=== PATIENT | female | born 1970 | race Caucasian/White ===

== ENCOUNTER → 2016-08-24 | Outpatient (CLI) | payer OTHER ==
--- NOTE | 2016-08-24 12:55 | MM ---
Reason for exam: screening (asymptomatic). Baseline mammogram. Physical Findings: Nurse did not find any significant physical abnormalities on exam. MG Screening Mammo w CAD Bilateral CC and MLO view(s) were taken. The breast tissue is extremely dense which could obscure a lesion on mammography. There is no discrete abnormality. These results were verbally communicated with the patient and result sheet given to the patient on 08/24/16. ASSESSMENT: Negative, BI-RAD 1 RECOMMENDATION: Routine screening mammogram of both breasts in 1 year.
== END | disposition home or self-care (01) ==
LOC: RADMAMWWP 08:27
PROVIDERS: ATTEND Family Medicine
DX: Z12.31 Encounter for screening mammogram for malignant neoplasm of breast (principal)

== ENCOUNTER → 2016-10-09 | Outpatient (CLI) | payer OTHER ==
--- NOTE | 2016-10-09 11:18 | MR ---
MRI CERVICAL SPINE: CLINICAL HISTORY: Cervicalgia per order. Headaches with neck pain causing numbness in hands, arms, an d feet per patient as well as pain or weakness in both arms and fingers. History of prior neck surger y TECHNIQUE: Multiplanar, multisequence imaging of the cervical spine is performed without and with IV contrast, 10 cc of gadolinium was given intravenously. COMPARISON: Same day cervical spine x-rays. FINDINGS: Exam is suboptimal as is degraded by patient motion. Sagittal images of the cervical spine show posterior spinal canal effacement due to C1 posterior ligamentous hypertrophy on sagittal image 7. The cervical and upper thoracic spinal cord is normal in caliber and signal. Vertebral alignment is straightened. There is artifact from anterior fusion plate C5-C6 level. The vertebral body and i ntravertebral disk heights are normal above C4 level and below C7 level. The bone marrow signal inte nsity is within normal limits. No suspicious postcontrast enhancement is seen. There is mild to moder ate anterior spurring C3-C4 levels noted. Axial images show the C2-C3, C3-C4, C4-C5 levels all to appear within normal limits. Axial images at C5-C6 level show blooming artifact from usual hardware, bilateral neural foramina are patent. Axial images at C6-C7 level show blooming artifact from anterior fusion hardware, bilateral neural fo ramina remain patent. Axial images at C7-T1 level are felt within normal limits. Visualized portion of thyroid gland is unremarkable. IMPRESSION: Suboptimal evaluation due to blooming artifact at C5-C6 level. Straightening of cervical spine is noted otherwise fairly unremarkable study.
--- NOTE | 2016-10-09 11:21 | XR ---
EXAMINATION TYPE: XR cervical spine w flex/ext DATE OF EXAM: 10/09/2016 TECHNIQUE: Frontal, lateral, oblique, dynamic flexion and extension lateral images , and open mouth v iew of the cervical spine are obtained. HISTORY: M54.2 history of neck surgery with neck pain COMPARISON: None FINDINGS: The cervical spine is visualized in its entirety from C1 thru the top of T1 level, it is s atisfactory in alignment without evidence of acute fracture or dislocation. The pre-vertebral soft t issue appears within normal limits. The C1-C2 articulation is within normal limits on the open mouth view. Anterior fusion plate with this changes C5-C6 level is present. There is ossific fusion at C6-C7 leve l noted. There is mild anterior spurring in the upper cervical spine. There is mild to moderate disc space narrowing and spurring C7-T1 level. The oblique images are within normal limits. Dynamic images show no significant focal subluxation or increased disc space narrowing at any cervical level. Overl eun soft tissue is unremarkable. IMPRESSION: Postsurgical changes C5-C6 level. Ossific fusion C5-C6 and C6-C7 levels. Satisfactory ali gnment is seen. Degenerative change above and below surgical levels most prominent at C7-T1 level is noted.
== END ==
LOC: RADMRIMAIN 09:48
PROVIDERS: ATTEND Psychiatry & Neurology Pain Medicine
DX: M47.813 Spondylosis without myelopathy or radiculopathy, cervicothoracic region (principal); Z98.890 Other specified postprocedural states
CPT/HCPCS: 72052; 72156; A9577

== ENCOUNTER 2017-05-12 22:06 | Emergency (ER) | payer OTHER ==
[2017-05-12] MEDS ORDERED: methylPREDNISolone SOD SUCCI 125 MG/2 ML VIAL IV ONE (22:18)
[2017-05-12] MEDS ORDERED: FAMOTIDINE 20 MG/2 ML VIAL IV STA (22:19)
[2017-05-12] MEDS ORDERED: diphenhydrAMINE 50 MG/ML 1 ML VIAL IVP STA (22:19)
--- NOTE | 2017-05-12 22:20 | ED ---
Allergic Reaction HPI - General Chief complaint: Allergic Reaction Stated complaint: Allergic reaction Time Seen by Provider: 05/12/17 22:18 Source: patient Mode of arrival: ambulatory Limitations: no limitations - History of Present Illness Initial Comments: Patient presents for ALLERGIC reaction. Patient states she ate at a steakhouse tonight, ate shrimp and fish. Approximately one hour later she was at the grocery when she broke out in hives on her arms, torso, neck, face. +itching. Patient denies any food ALLERGIES or ALLERGIES anything else. Denies medication ALLERGIES. Patient denies throat swelling, shortness of breath, chest pain, abdominal pain, nausea, vomiting. Patient denies any recent medication changes. MD Complaint: allergic reaction, hives - Related Data Home Medications Medication Instructions Recorded Confirmed DULoxetine HCL [Cymbalta] 60 mg PO DAILY@1600 05/12/17 05/12/17 Dextroamphetamine/Amphetamine 20 mg PO BID@0700,1300 05/12/17 05/12/17 [Adderall] Ergocalciferol [Vitamin D2] 50,000 unit PO FR 05/12/17 05/12/17 Hydrocodone/Acetaminophen [[place] 1 tab PO TID 05/12/17 05/12/17 10-325] Ibuprofen [Motrin] 600 mg PO Q8HR PRN 05/12/17 05/12/17 tiZANidine [Zanaflex] 4 mg PO BID@0700,1600 05/12/17 05/12/17 Previous Rx's Medication Instructions Recorded Famotidine [Pepcid] 20 mg PO DAILY #5 tablet 05/13/17 diphenhydrAMINE [Benadryl] 50 mg PO TID PRN #10 capsule 05/13/17 predniSONE 40 mg PO DAILY 5 Days #10 tab 05/13/17 Allergies Allergy/AdvReac Type Severity Reaction Status Date / Time No Known Allergies Allergy Verified 05/12/17 22:35 Review of Systems ROS Statement: Those systems with pertinent positive or pertinent negative responses have been documented in the HPI. ROS Other: All systems not noted in ROS Statement are negative. Constitutional: Denies: fever, chills, weakness Eyes: Denies: vision change ENT: Denies: throat pain, congestion Respiratory: Denies: cough, dyspnea, wheezes, stridor Cardiovascular: Denies: chest pain, palpitations, dyspnea on exertion Endocrine: Denies: fatigue Gastrointestinal: Denies: abdominal pain, nausea, vomiting Skin: Reports: rash Neurological: Denies: headache Past Medical History Past Medical History: No Reported History History of Any Multi-Drug Resistant Organisms: None Reported Additional Past Surgical History / Comment(s): neck surgery x2 Past Psychological History: No Psychological Hx Reported Smoking Status: Current every day smoker Past Alcohol Use History: Rare Past Drug Use History: Marijuana General Exam - General Exam Comments Initial Comments: Sitting up in bed smiling. No acute distress. Well-appearing. Calm, pleasant , making jokes. Limitations: no limitations General appearance: alert, in no apparent distress Head exam: Present: atraumatic, normocephalic Eye exam: Present: normal appearance, PERRL, EOMI. Absent: conjunctival injection, periorbital swelling, periorbital tenderness ENT exam: Present: normal exam, normal oropharynx, mucous membranes moist, other (Oropharynx clear. No intraoral or posterior oropharynx swelling appreciated.) Neck exam: Present: normal inspection, full ROM. Absent: meningismus Respiratory exam: Present: normal lung sounds bilaterally. Absent: respiratory distress, wheezes, rales, rhonchi, stridor, accessory muscle use, decreased breath sounds, prolonged expiratory (No stridor) Cardiovascular Exam: Present: regular rate, normal rhythm GI/Abdominal exam: Present: soft. Absent: distended, tenderness, guarding, rebound Extremities exam: Present: other (No edema appreciated) Back exam: Present: rash noted Neurological exam: Present: alert, oriented X3 Psychiatric exam: Present: normal affect, normal mood Skin exam: Present: warm, dry, rash, urticaria (Patient with erythematous urticaria on face neck anterior and posterior torso and arms bilaterally.) Course Vital Signs 05/12/17 22:14 Temperature 98.3 F Pulse Rate 103 H Respiratory 16 Rate Blood Pressure 166/100 Medical Decision Making - Medical Decision Making Benadryl, Pepcid, Solu-Medrol ordered. No signs of respiratory distress at time of initial evaluation. We'll give medications and continue to monitor in the ER. 23:28 difficulty obtaining IV access after attempts by 5 different people. We' ll change medications to oral and IM. Patient reevaluated status post medications, states at feel better. Patient's urticaria resolved. No respiratory distress. Patient is comfortable going home. Agrees to return to ER immediately if any shortness of breath or swelling occurs. Follow primary care physician one to 2 days. Prescription for Benadryl, Pepcid, steroids given. We'll discharge home at this time. Disposition Clinical Impression: Allergic reaction Disposition: HOME SELF-CARE Condition: Good Instructions: Food Allergy (ED) Additional Instructions: Pulpit primary care physician. Return to ER immediately if new or worsening symptoms including swelling or difficulty breathing. Prescriptions: diphenhydrAMINE [Benadryl] 50 mg PO TID PRN #10 capsule PRN Reason: Allergic Reaction Famotidine [Pepcid] 20 mg PO DAILY #5 tablet predniSONE 40 mg PO DAILY 5 Days #10 tab Referrals: Oliver Fitzgerald MD [Primary Care Provider] - 1-2 days
[2017-05-12] MEDS ORDERED: methylPREDNISolone SOD SUCCI 125 MG/2 ML VIAL IM ONE (23:27)
[2017-05-12] MEDS ORDERED: diphenhydrAMINE 50 MG/ML 1 ML VIAL IM STA (23:27)
[2017-05-12] MEDS ORDERED: FAMOTIDINE 20 MG TAB PO STA (23:27)
[2017-05-13 00:46] VITALS: BP 138/84; PULSE 78; RESP 18; TEMP 97.8
== END 2017-05-13 00:35 | disposition home or self-care (01) ==
LOC: EC 22:06
DX: T78.1XXA Other adverse food reactions, not elsewhere classified, initial encounter (principal); F17.200 Nicotine dependence, unspecified, uncomplicated; Z79.899 Other long term (current) drug therapy
CPT/HCPCS: 99283; 96372 ×2; J1200; J2930